=== PATIENT | male | born 1950 | race Caucasian/White ===

== ENCOUNTER 2020-08-06 09:54 | Day surgery (SDC) | payer MEDICARE, OTHER, SELFPAY ==
[2020-04-09 12:50] VITALS: BMI 25.6
[2020-08-06] VITALS (8 sets, daily range): BP systolic 94–132; BP diastolic 57–82; PULSE 54–74; RESP 16; TEMP 36.1–37; O2SAT 92–97; BMI 25.3
[2020-08-06] MEDS: Lactated Ringers 1,000 ML 100 ML IV (10:46)
--- NOTE | 2020-08-06 11:46 | HP.PCM_ITS ---
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 Patient denies any chronic abdominal pain/nausea/vomiting. Patient states he has bowel movements daily denies any blood. Denies any family history of colon cancer. Past Medical/Surgical History - Planned Operation Planned Operative Procedure/s: colonoscopy Date of Operative Procedure: 08/06/20 Permit Signed: No S.O.S: No Is This Patient Having a Total Joint: No - Previous Hospitalizations/Surgeries HX Hospitalizations: No HX of Surgeries: LUMBAR DISKECTOMY 2016. COLONOSCOPY Any Problems With Anesthesia: No You/Your Family Experience Fever (Hyperthermia) With Anes: No Cholinesterase deficiency: No - Cardiovascular Hx Chest Pain within Last 2 months: No Hx of Irregular Heartbeat and/or Afib: No Hx Heart Attack: No Hx Congestive Heart Failure: No Hx Rheumatic Fever: No Hx Hypertension: No Hx Internal Defibrillator: No Hx Pacemaker: No Hx Cardiac Catheterization: No Hx Cardiac Surgery/Stents/Etc.: No Hx Stress Test: No HX Edema: No Hx Pain in Legs when Walking/Leg Cramps: No - Respiratory Chronic Cough: No HX of Shortness of Breath: No Hoarseness: No Hx Chronic Obstructive Pulmonary Disease (COPD): No Hx Asthma: No Hx Emphysema: No Hx Sleep Apnea: No Hx Respiratory Tract Infection/Cold (presently): No Do You Snore Loudly (louder than talking or can be heard): No Do You Often Feel Tired/ Fatigued/ Sleepy Dring Daytime?: No Has Anyone Observed You Stop Breathing During Sleep?: No Result (for STOP score): Negative Hx Smoking: No Smoking Status: Never smoker - Gastrointestinal Hx Gastroesophageal Reflux: No Hx Gastrointestinal Disorders: No Hx Gastrointestinal Bleed: No Hx Ulcer: No Hx Hiatal Hernia: No Difficulty Chewing/Swallowing: No Special diet followed at home: Yes - DIABETIC Hx Unplanned Weight Loss of 20#: No HX Unplanned Weight Gain of 20#: No - Neurological Hx Seizures: No HX Syncope/Blackout Spells/Unconsciousness: No Hx CVA/Stroke: No Hx Transient Ischemic Attacks (TIA): No Hx Multiple Sclerosis: No Hx Parkinson's Disease: No Hx Head/Neck Injury: No Hx Headaches: No Hx Back Injury/Pain: Yes - LUMBAR DISKECTOMY FROM INJURY Recent Onset of Speech Difficulty: No Restless Legs: No Does patient have nerve stimulator: No - Blood Disorder Hx Leukemia: No Bleeding Tendencies: No Hx Deep Vein Thrombosis: No Hx High Cholesterol: Yes - on med Blood Transmitted Disease: No Hx Hepatitis: No Hx Cirrhosis: No Hx Anemia: No Hx Blood Disorders: No - Genitourinary Hx Renal Disease: No - Musculoskeletal Hx Arthritis: Yes - in neck Hx Rheumatoid Arthritis: No Hx Gout: No Recent Onset of an Orthopedic Problem: No - Endocrine Hx Diabetes: Yes - on metformin Insulin: No Thyroid Disease: No Hx Steroid Therapy: No - Psycho/Social Hx Substance Use: No Hx Alcohol Use: No Hx Anxiety: No Hx Depression: No Mental Illness: No Hx Dementia: No - Miscellaneous Hx Cancer: No Recent Exposure to Contagious Disease: No Active MRSA: No Hx of C-Diff: No Any Loose Teeth: No Allergies No Known Allergies Allergy (Verified 04/09/20 12:50) - Discharge Is Pt Admitted From a [facility], or a Senior Care: Yes Who Could Help: radha After D/C, Where Do you Plan to Go: Return Home - From the PAT History Number of Risk Factors: 2 - Physical Exam Vitals/I&O's: Vital Signs Temp Pulse Resp BP Pulse Ox 98.6 F 74 16 132/81 H 96 08/06/20 10:34 08/06/20 10:34 08/06/20 10:34 08/06/20 10:34 08/06/20 10:34 Oxygen Delivery Method Room Air Weight: 181 lb 10.574 oz Body Mass Index (BMI) 25.3 General: Alert, Oriented x3, Cooperative, No apparent distress HEENT: Atraumatic Lungs: Normal air movement Cardiovascular: Regular rate Abdomen: Soft, Non Tender, Non-Distended Extremities: No clubbing, No cyanosis, No edema Neurological: Cranial nerves II-XII grossly intact Psych/Mental Status: Normal Affect Microbiology Past 72 Hours 08/04/20 12:05 Interface Orders SARS-CoV-2 Antigen (Rapid) - Final Current Medications Lactated Ringer's () 1,000 mls @ 100 mls/hr IV .Q10H ABNER Last Admin: 08/06/20 10:46 Dose: 100 mls/hr Documented by: Assessment/Plan 70-year-old male for surveillance colonoscopy due to history of tubular villous adenoma rectal polyp Procedure Criteria Procedure Type: Elective COVID Risk Discussion: The surgeon/proceduralist and patient have discussed in detail the risk of expo sure to and/or potential harm posed by the COVID-19 virus with having a surgery/procedure at this time versus the risk of delaying the surgery/procedure. It is not possible to know either the risk of delaying the surgery or procedure or chance of getting an infection with perfect accuracy, but a joint decision was made between the patient and the surgeon/proceduralist to proceed at this time with the scheduled surgery/procedure as indicated on the consent form. Surgery Risks - Colonoscopy I discussed with the patient the risks of the procedure: Yes Risks Include but are not Limited To: Risks include but are not limited to: Bleeding, perforation requiring further surgery, inability to complete colonoscopy requiring barium enema.
--- NOTE | 2020-08-06 12:38 | OP.CCLET_ITS ---
08/06/2020 Karissa Grant [address] [phone] Re : Colonoscopy procedure for Randolph Bonilla Dear Dr. Grant This procedure was performed on Thursday, August 06, 2020. My impressions and recommendations are as follows: Impressions : - The entire examined colon is normal on direct and retroflexion views. - No specimens collected. Recommendations : - Discharge patient to home. - Resume previous diet. - Continue present medications. - Repeat colonoscopy in 5 years for surveillance. My findings are described in the full procedure note, which is enclosed. If I can be of further assistance, please feel free to contact me at Doctor phone number(s): , Work: . Sincerely, MD Glenna Rincon MD 08/06/2020 12:38:02 PM This report has been signed electronically.
--- NOTE | 2020-08-06 12:38 | OP.COLON_ITS ---
Patient Name: Randolph Bonilla Procedure Date: 08/06/2020 11:55 AM Date of : 1950 Age: 70 Procedure: Colonoscopy Indications: High risk colon cancer surveillance: Personal history of adenoma with villous component Providers: Glenna Rodriguez MD Referring MD: Karissa Grant Medicines: Monitored Anesthesia Care Patient Profile: This is a 70 year old male. Last Colonoscopy: July 2017. Complications: No immediate complications. Procedure: Pre-Anesthesia Assessment: - Prior to the procedure, a History and Physical was performed, and patient medications and allergies were reviewed. The patient's tolerance of previous anesthesia was also reviewed. The risks and benefits of the procedure and the sedation options and risks were discussed with the patient. All questions were answered, and informed consent was obtained. Prior Anticoagulants: The patient has taken no previous anticoagulant or antiplatelet agents. ASA Grade Assessment: Per anesthesia. After reviewing the risks and benefits, the patient was deemed in satisfactory condition to undergo the procedure. After I obtained informed consent, the scope was passed under direct vision. Throughout the procedure, the patient's blood pressure, pulse, and oxygen saturations were monitored continuously. The pediatric colonoscope was introduced through the anus and advanced to the cecum, identified by the appendiceal orifice, ileocecal valve and palpation. The colonoscopy was performed without difficulty. The patient tolerated the procedure well. The quality of the bowel preparation was good. Scope In: 12:04:58 PM Scope Withdrawal Time 0 hours 11 minutes 48 seconds Scope Out: 12:28:54 PM Total Procedure Duration Time 0 hours 23 minutes 56 seconds Findings: The perianal and digital rectal examinations were normal. The entire examined colon appeared normal on direct and retroflexion views. Impression: - The entire examined colon is normal on direct and retroflexion views. - No specimens collected. Recommendation: - Discharge patient to home. - Resume previous diet. - Continue present medications. - Repeat colonoscopy in 5 years for surveillance. Procedure Code(s): --- Professional --- G0105, Colorectal cancer screening; colonoscopy on individual at high risk Diagnosis Code(s): --- Professional --- Z86.010, Personal history of colonic polyps CPT copyright 2017 [employer]. All rights reserved. The codes documented in this report are preliminary and upon executive director sheltered workshop review may be revised to meet current compliance requirements. MD Glenna Rincon MD 08/06/2020 12:38:02 PM This report has been signed electronically. Number of Addenda: 0 Note Initiated On: 08/06/2020 11:55 AM
== END 2020-08-06 13:20 | disposition home or self-care (01) ==
LOC: EN 09:55 → AC 09:56
PROVIDERS: PCP Internal Medicine Infectious Disease; Referring Provider Internal Medicine Infectious Disease; Visit Provider Surgery
PROC: 0DJD8ZZ Inspection of Lower Intestinal Tract, Via Natural or Artificial Opening Endoscopic (ICD-10-PCS; CPT 45378; principal; 2020-08-06 11:10)
DX: Z12.11 Encounter for screening for malignant neoplasm of colon (principal); Z86.010 Personal history of colon polyps; E78.00 Pure hypercholesterolemia, unspecified; E11.9 Type 2 diabetes mellitus without complications; Z79.899 Other long term (current) drug therapy; Z79.84 Long term (current) use of oral hypoglycemic drugs; Z20.828 Contact with and (suspected) exposure to other viral communicable diseases
CPT/HCPCS: G0105; 87426; C9803; J7120

== ENCOUNTER → 2021-04-30 14:57 | Outpatient (CLI) | payer MEDICARE, OTHER, SELFPAY ==
[2020-08-06 10:34] VITALS: BMI 25.3
== END ==
PROVIDERS: PCP Internal Medicine Infectious Disease; Referring Provider Nurse Practitioner Adult Health; Visit Provider Nurse Practitioner Adult Health
DX: Z12.5 Encounter for screening for malignant neoplasm of prostate (principal)
CPT/HCPCS: 36415; 84153; G0103

== ENCOUNTER → 2023-06-07 | Outpatient (CLI) | payer MEDICARE, OTHER, SELFPAY | END | disposition home or self-care (01) | LOC: LAB 11:18 | PROVIDERS: PCP Internal Medicine Infectious Disease; Referring Provider Radiology Radiation Oncology; Visit Provider Radiology Radiation Oncology | DX: Z12.5 Encounter for screening for malignant neoplasm of prostate (principal) | CPT/HCPCS: 36415; 84153; G0103 ==

== ENCOUNTER → 2024-06-14 | Outpatient (CLI) | payer MEDICARE, OTHER, SELFPAY ==
[2024-06-14 12:48] LABS: PSA,Total - Annual Screen 1.12 ng/mL (0.00-4.00)
== END | disposition home or self-care (01) ==
LOC: LAB 10:20
PROVIDERS: PCP Internal Medicine Infectious Disease; Referring Provider Nurse Practitioner; Visit Provider Nurse Practitioner
DX: Z12.5 Encounter for screening for malignant neoplasm of prostate (principal)
CPT/HCPCS: 36415; 84153; G0103

== ENCOUNTER 2025-02-27 07:32 | Day surgery (SDC) | payer MEDICARE, OTHER, SELFPAY ==
[2025-02-27] VITALS (8 sets, daily range): BP systolic 101–148; BP diastolic 63–81; PULSE 50–58; RESP 14–18; TEMP 36.1–36.4; O2SAT 90–98; BMI 24.5
--- OUTSIDE RECORDS SUMMARY | 2025-02-27 07:43 | XMS RPT_ITS | CCD ---
Author Organization [facility] Care Team Providers Care Testing Analyst Name Role Phone Glenna Rodriguez MD Unavailable [phone] Afua Davis PA-C Unavailable [phone] DOLORES GRANT MD Admitting Unavailable DOLORES GRANT MD Attending Unavailable DOLORES GRANT MD Primary Care Unavailable DOLORES GRANT MD Consulting Unavailable PROVIDER, UNKNOWN Consulting Unavailable PROVIDER, UNKNOWN Consulting Unavailable PROVIDER, UNKNOWN Consulting Unavailable DOLORES GRANT MD Admitting Unavailable DOLORES GRANT MD Attending Unavailable DOLORES GRANT MD Primary Care Unavailable DOLORES GRANT MD Consulting Unavailable PROVIDER, UNKNOWN Consulting Unavailable PROVIDER, UNKNOWN Consulting Unavailable PROVIDER, UNKNOWN Consulting Unavailable DOLORES GRANT MD Admitting Unavailable DOLORES GRANT MD Attending Unavailable DOLORES GRANT MD Primary Care Unavailable DOLORES GRANT MD Consulting Unavailable PROVIDER, UNKNOWN Consulting Unavailable PROVIDER, UNKNOWN Consulting Unavailable PROVIDER, UNKNOWN Consulting Unavailable DOLORES GRANT MD Admitting Unavailable DOLORES GRANT MD Attending Unavailable DOLORES GRANT MD Primary Care Unavailable DOLORES GRANT MD Consulting Unavailable PROVIDER, UNKNOWN Consulting Unavailable PROVIDER, UNKNOWN Consulting Unavailable PROVIDER, UNKNOWN Consulting Unavailable [place] Attending Unavailable Dolores Grant Primary Care Unavailable [place] Referring Unavailable Dolores Grant Referring Unavailable Dolores Grant Primary Care Unavailable Glenna Rodriguez Attending Unavailable Medications Current Medications Medication Drug Class(es) Dates Sig (Normalized) Sig (Original) aspirin 81 mg delayed release oral tablet (1 source) Platelet Aggregation Inhibitor, Nonsteroidal Anti-inflammatory Drug Start: 04-09-2020 take 81 mg by mouth once daily Aspirin Active 81 MG PO DAILY April 09, 2020 12:00am lovastatin 40 mg oral tablet (1 source) HMG-CoA Reductase Inhibitor Start: 04-09-2020 take 40 mg by mouth once daily Lovastatin Active 40 MG PO DAILY April 09, 2020 12:00am metFORMIN hydrochloride 1000 mg oral tablet (1 source) Biguanide Start: 07-29-2017 take 500 mg by mouth once daily Metformin Active 500 MG PO DAILY July 29, 2017 1:00am Completed/Discontinued Medications Medication Drug Class(es) Dates Sig (Normalized) Sig (Original) Drug Treatment Unknown - unknown (3 sources) No information available. Problems Active Problems Problem Classification Problem Date Documented Da te Episodic/Chronic Diabetes mellitus without complication (3 sources) Type 2 diabetes mellitus without complications; Translations: [Type 2 diabetes mellitus without complications] Onset: 11-26-2024 Chronic Unclassified (2 sources) Screening for malignant neoplasm of colon ; Translations: [Encounter for screening for malignant neoplasm of colon] Onset: 07-06-2017 07-06-2017 Past or Other Problems Problem Classification Problem Date Documented Da te Episodic/Chronic Other screening for suspected conditions (not mental disorders or infectious disease) (1 source) Encounter for screening for malignant neoplasm of prostate; Translations: [Encounter for screening for malignant neoplasm of prostate] Onset: 07-12-2024 Episodic Results Test Name Value Interpretation Reference Range Facility [facility] with eGFRon 02-15-2025 AGE 74 years Normal [facility] Comment on above: Performed By: #### 2 02583 #### [facility],[address] [place] [address] Albumin [Mass/Vol] 3.9 g/dL Normal 3.4 - 5.0 [facility] Comment on above: Performed By: #### 2 68972 #### [facility],[address] [place], [place] [id number] Albumin/Globulin [Mass ratio] 1.1 {ratio} Normal 0.9 - 1.6 [facility] Comment on above: Performed By: #### 2 02265 #### [facility],[address] [place] [address] ALK PHOS 137 U/L High 46 - 116 [facility] Comment on above: Performed By: #### 2 11655 #### [facility],[address] [place] [address] ALT [Catalytic activity/Vol] 37 U/L Normal 16 - 63 [facility] Comment on above: Performed By: #### 2 42685 #### [facility],[address] [place], [place] [id number] Anion gap [Moles/Vol] 11 mmol/L Normal 10 - 20 [facility] Comment on above: Performed By: #### 2 42208 #### [facility],[address] [place] [address] AST [Catalytic activity/Vol] 27 U/L Normal 15 - 37 [facility] Comment on above: Performed By: #### 2 23922 #### [facility],[address] [place] [address] B/C RATIO 10 ratio Normal 0 - 30 [facility] Comment on above: Performed By: #### 2 70922 #### [facility],[address] [place] [address] Bilirubin [Mass/Vol] 0.8 mg/dL Normal 0.2 - 1.0 [facility] Comment on above: Performed By: #### 2 93301 #### [facility],[address] [place] [address] Calcium [Mass/Vol] 9.2 mg/dL Normal 8.5 - 10.1 [facility] Comment on above: Performed By: #### 2 99914 #### [facility],[address] [place], [place] [id number] Chloride [Moles/Vol] 104 mmol/L Normal 98 - 107 [facility] Comment on above: Performed By: #### 2 34181 #### [facility],[address] [place] [address] CMP with eGFR Normal [facility] Comment on above: Result Comment: COMP REHENSIVE METABOLIC PANEL Performed By: #### 2 32522 #### [facility],[address] [place] [address] CO2 [Moles/Vol] 29.4 mmol/L Normal 21.0 - 32.0 [facility] Comment on above: Performed By: #### 2 53599 #### [facility],[address] [place], [place] [id number] Creatinine [Mass/Vol] 1.15 mg/dL Normal 0.70 - 1.30 [facility] Comment on above: Performed By: #### 2 90964 #### [facility],[address] [place], [place] [address] GFR/1.73 sq M.predicted among non-blacks MDRD (S/P/Bld) [Vol rate/Area] mL/min/{1.73_m2} Normal 60 - 999 [facility] Comment on above: Performed By: #### 2 86327 #### [facility],[address] [place] [address] Result Comment: ACCO RDING TO THE NATIONAL KIDNEY DISEASE EDUCATION PROGRAM(NKDE), A NORMAL eGFR IS A VALUE GREATER THAN OR EQUAL TO 60 ML/MIN/1.73 SQ METERS. CHRONIC KIDNEY DISEASE: <60mL/MIN/1.73 SQ METERS KIDNEY FAILURE: <15mL/MIN/1.73 SQ METERS THIS TEST SHOULD ONLY BE USED FOR PATIENTS 18 YEARS OF AGE AND OLDER. Globulin (S) [Mass/Vol] 3.6 g/dL Normal 1.5 - 3.8 [facility] Comment on above: Performed By: #### 2 77387 #### [facility],[address] [place], [place] [id number] Glucose [Mass/Vol] 164 mg/dL High 74 - 106 [facility] Comment on above: Performed By: #### 2 50246 #### [facility],[address] [place], [place] [id number] Potassium [Moles/Vol] 4.6 mmol/L Normal 3.5 - 5.1 [facility] Comment on above: Performed By: #### 2 24974 #### [facility],[address] [place], [place] [id number] Protein [Mass/Vol] 7.5 g/dL Normal 6.4 - 8.2 [facility] Comment on above: Performed By: #### 2 56263 #### [facility],[address] [place], [place] [id number] Sodium [Moles/Vol] 140 mmol/L Normal 136 - 145 [facility] Comment on above: Performed By: #### 2 95401 #### [facility],[address] [place] [address] Urea nitrogen [Mass/Vol] 12 mg/dL Normal 7 - 18 [facility] Comment on above: Performed By: #### 2 23584 #### [facility],[address] [place] [address] HEMOGLOBIN A1C (POM)on 02-15 Glucose [Mass/Vol] 191.5 mg/dL High 0.0 - 0.0 [facility] Comment on above: Result Comment: BLDo HEMOGLOBIN A1C REFERENCE RANGESBLDo Suggested Diagnosis HbA1c(%) HbA1C (mmol/mol Diabetic >/=6.5 >/=48 Prediabetes 5.7 - 6.4 39 - 47 Normal <5.7 <39 Performed By: #### 2 39391 #### [facility],[address] [place], [place] [id number] HbA1c (Bld) [Mass fraction] 8.3 % High 0.0 - 6.5 [facility] Comment on above: Performed By: #### 2 76974 #### [facility],[address] [place] [address] CMP with eGFRon 11-26-2024 AGE 74 years Normal [facility] Comment on above: Performed By: #### 2 34246 #### [facility],[address] [place], [place] [id number] Albumin [Mass/Vol] 4.2 g/dL Normal 3.4 - 5.0 [facility] Comment on above: Performed By: #### 2 80089 #### [facility],[address] [place] [address]69 Albumin/Globulin [Mass ratio] 1.2 {ratio} Normal 0.9 - 1.6 [facility] Comment on above: Performed By: #### 2 47451 #### [facility],[address] [place] [address]663 ALK PHOS 129 U/L High 46 - 116 [facility] Comment on above: Performed By: #### 2 45073 #### [facility],[address] [place] [address] 59189 ALT [Catalytic activity/Vol] 30 U/L Normal 16 - 63 [facility] Comment on above: Performed By: #### 2 72028 #### [facility],[address] [place] [address]458 Anion gap [Moles/Vol] 12 mmol/L Normal 10 - 20 [facility] Comment on above: Performed By: #### 2 96005 #### [facility],[address] [place] [address] 67191 AST [Catalytic activity/Vol] 20 U/L Normal 15 - 37 [facility] Comment on above: Performed By: #### 2 53367 #### [facility],[address] [place] [address] 28261 B/C RATIO 11 ratio Normal 0 - 30 [facility] Comment on above: Performed By: #### 2 26344 #### [facility],[address] [place] [address]6869 Bilirubin [Mass/Vol] 0.8 mg/dL Normal 0.2 - 1.0 [facility] Comment on above: Performed By: #### 2 62203 #### [facility],[address] [place] [address]26 Calcium [Mass/Vol] 9.9 mg/dL Normal 8.5 - 10.1 [facility] Comment on above: Performed By: #### 2 50988 #### [facility],[address] [place] [address] 29612 Chloride [Moles/Vol] 103 mmol/L Normal 98 - 107 [facility] Comment on above: Performed By: #### 2 67934 #### [facility],[address] [place] [address] 93200 CMP with eGFR Normal [facility] Comment on above: Result Comment: COMP REHENSIVE METABOLIC PANEL Performed By: #### 2 97107 #### [facility],[address] [place] [address]805 CO2 [Moles/Vol] 29.6 mmol/L Normal 21.0 - 32.0 [facility] Comment on above: Performed By: #### 2 15920 #### [facility],[address] [place] [address]18 Creatinine [Mass/Vol] 1.01 mg/dL Normal 0.70 - 1.30 [facility] Comment on above: Performed By: #### 2 25497 #### [facility],[address] [place] [address] GFR/1.73 sq M.predicted among non-blacks MDRD (S/P/Bld) [Vol rate/Area] mL/min/{1.73_m2} Normal 60 - 999 [facility] Comment on above: Performed By: #### 2 49086 #### [facility],[address] [place] [address] Result Comment: ACCO RDING TO THE NATIONAL KIDNEY DISEASE EDUCATION PROGRAM(NKDE), A NORMAL eGFR IS A VALUE GREATER THAN OR EQUAL TO 60 ML/MIN/1.73 SQ METERS. CHRONIC KIDNEY DISEASE: <60mL/MIN/1.73 SQ METERS KIDNEY FAILURE: <15mL/MIN/1.73 SQ METERS THIS TEST SHOULD ONLY BE USED FOR PATIENTS 18 YEARS OF AGE AND OLDER. Globulin (S) [Mass/Vol] 3.5 g/dL Normal 1.5 - 3.8 [facility] Comment on above: Performed By: #### 2 43946 #### [facility],[address] [place] [address] 12728 Glucose [Mass/Vol] 149 mg/dL High 74 - 106 [facility] Comment on above: Performed By: #### 2 51731 #### [facility],[address] [place] [address] 82506 Potassium [Moles/Vol] 4.3 mmol/L Normal 3.5 - 5.1 [facility] Comment on above: Performed By: #### 2 92170 #### [facility],[address] [place] [address] 85885 Protein [Mass/Vol] 7.7 g/dL Normal 6.4 - 8.2 [facility] Comment on above: Performed By: #### 2 08005 #### [facility],[address] [place] [address] 12201 Sodium [Moles/Vol] 140 mmol/L Normal 136 - 145 [facility] Comment on above: Performed By: #### 2 15429 #### [facility],[address] [place] [address] 36035 Urea nitrogen [Mass/Vol] 11 mg/dL Normal 7 - 18 [facility] Comment on above: Performed By: #### 2 45673 #### [facility],[address] [place] [address] 81694 HEMOGLOBIN A1C (POM)on 11-26 Glucose [Mass/Vol] 191.5 mg/dL High 0.0 - 0.0 [facility] Comment on above: Result Comment: BLDo HEMOGLOBIN A1C REFERENCE RANGESBLDo Suggested Diagnosis HbA1c(%) HbA1C (mmol/mol Diabetic >/=6.5 >/=48 Prediabetes 5.7 - 6.4 39 - 47 Normal <5.7 <39 Performed By: #### 2 50984 #### [facility],[address] [place] [address] 24711 HbA1c (Bld) [Mass fraction] 8.3 % High 0.0 - 6.5 [facility] Comment on above: Performed By: #### 2 43495 #### [facility],[address] [place], [place] [address] CBC + DIFFon 08-28-2024 Baso # 0.02 x10EE3/UL Normal 0.00 - 0.10 [facility] Comment on above: Performed By: #### 2 93018 #### [facility],[address] [place], [place] [address] Basophils/100 WBC (Bld) 0.4 % Normal 0.0 - 2.0 [facility] Comment on above: Performed By: #### 2 41153 #### [facility],[address] [place] [address] CBC + DIFF Normal [facility] Comment on above: Result Comment: CBC- COMPLETE BLOOD COUNT Performed By: #### 2 25077 #### [facility],[address] [place] [address] EO # 0.08 x10EE3/UL Normal 0.00 - 0.50 [facility] Comment on above: Performed By: #### 2 17708 #### [facility],[address] [place] [address] 43452 Eosinophils/100 WBC (Bld) 1.8 % Normal 0.0 - 7.0 [facility] Comment on above: Performed By: #### 2 05047 #### [facility],[address] [place], [place] [address] Erythrocyte distribution width (RBC) [Ratio] 13.8 % Normal 12.0 - 15.6 [facility] Comment on above: Performed By: #### 2 89076 #### [facility],[address] [place], [place] [address] Hematocrit (Bld) [Volume fraction] 45.8 % Normal 40.0 - 52.0 [facility] Comment on above: Performed By: #### 2 29967 #### [facility],[address] [place] [address] 02317 Hemoglobin (Bld) [Mass/Vol] 15.6 g/dL Normal 13.0 - 17.5 [facility] Comment on above: Performed By: #### 2 02839 #### [facility],[address] [place], [place] [address] Lymph # 0.88 x10EE3/UL Normal 0.80 - 2.80 [facility] Comment on above: Performed By: #### 2 74870 #### [facility],[address] [place], [place] [address] Lymphocytes/100 WBC (Bld) 20.1 % Normal 20.0 - 45.0 [facility] Comment on above: Performed By: #### 2 28047 #### [facility],[address] [place], [place] [address] MANUAL DIFF N/A Normal [facility] Comment on above: Performed By: #### 2 32253 #### [facility],[address] [place] [address] 84148 MCH (RBC) [Entitic mass] 29 pg Normal 27 - 33 [facility] Comment on above: Performed By: #### 2 69157 #### [facility],[address] [place] [address] 44759 MCHC 34 X10 3 Normal 32 - 36 [facility] Comment on above: Performed By: #### 2 87036 #### [facility],[address] [place] [address] 28973 MCV (RBC) [Entitic vol] 86 fL Normal 81 - 98 [facility] Comment on above: Performed By: #### 2 48712 #### [facility],[address] [place] [address] 67753 [place] # 0.34 x10EE3/UL Normal 0.20 - 1.00 [facility] Comment on above: Performed By: #### 2 91088 #### [facility],[address] [place] [address] 68068 MONOS % 7.8 % Normal 0.0 - 10.0 [facility] Comment on above: Performed By: #### 2 53889 #### [facility],[address] [place] [address] 30789 Morphology Reg (Bld) [Interp] N/A Normal [facility] Comment on above: Performed By: #### 2 82382 #### [facility],[address] [place] [address] 96248 Neut # 3.06 x10EE3/UL Normal 1.50 - 7.10 [facility] Comment on above: Performed By: #### 2 42589 #### [facility],[address] [place] [address] 76293 Neutrophils/100 WBC (Bld) 69.9 % Normal 46.0 - 76.0 [facility] Comment on above: Performed By: #### 2 04719 #### [facility],[address] [place] [address] 93188 PLATELET 240 x10EE3/UL Normal 150 - 450 [facility] Comment on above: Performed By: #### 2 57137 #### [facility],[address] [place] [address] 36602 Platelet mean volume (Bld) [Entitic vol] 8.3 fL Normal 6.4 - 10.5 [facility] Comment on above: Result Comment: AUTO MATED DIFFERENTIAL Performed By: #### 2 45222 #### [facility],[address] [place] [address] 37309 RBC 5.34 x 10EE6/UL Normal 4.50 - 6.00 [facility] Comment on above: Performed By: #### 2 74712 #### [facility],[address] [place] [address] 80963 WBC 4.4 x 10EE3/UL Low 4.5 - 10.8 [facility] Comment on above: Performed By: #### 2 24843 #### [facility],[address] [place] [address] 37921 CMP with eGFRon 08-28-2024 AGE 74 years Normal [facility] Comment on above: Performed By: #### 2 98100 #### [facility],[address] [place] [address] 79147 Albumin [Mass/Vol] 3.9 g/dL Normal 3.4 - 5.0 [facility] Comment on above: Performed By: #### 2 68714 #### [facility],[address] [place] [address] 46186 Albumin/Globulin [Mass ratio] 1.2 {ratio} Normal 0.9 - 1.6 [facility] Comment on above: Performed By: #### 2 28281 #### [facility],[address] [place] [address] 41810 ALK PHOS 118 U/L High 46 - 116 [facility] Comment on above: Performed By: #### 2 96686 #### [facility],[address] [place] [address] 83860 ALT [Catalytic activity/Vol] 35 U/L Normal 16 - 63 [facility] Comment on above: Performed By: #### 2 37556 #### [facility],[address] [place] [address] 54721 Anion gap [Moles/Vol] 10 mmol/L Normal 10 - 20 [facility] Comment on above: Performed By: #### 2 45094 #### [facility],[address] [place] [address] 75246 AST [Catalytic activity/Vol] 26 U/L Normal 15 - 37 [facility] Comment on above: Performed By: #### 2 69728 #### [facility],[address] [place] [address] 24550 B/C RATIO 9 ratio Normal 0 - 30 [facility] Comment on above: Performed By: #### 2 32315 #### [facility],[address] [place] [address] 28539 Bilirubin [Mass/Vol] 0.9 mg/dL Normal 0.2 - 1.0 [facility] Comment on above: Performed By: #### 2 81331 #### [facility],[address] [place] [address] 52022 Calcium [Mass/Vol] 9.2 mg/dL Normal 8.5 - 10.1 [facility] Comment on above: Performed By: #### 2 04838 #### [facility],[address] [place] [address] 07229 Chloride [Moles/Vol] 104 mmol/L Normal 98 - 107 [facility] Comment on above: Performed By: #### 2 77769 #### [facility],[address] [place] [address] 61001 CMP with eGFR Normal [facility] Comment on above: Result Comment: COMP REHENSIVE METABOLIC PANEL Performed By: #### 2 21307 #### [facility],[address] [place] [address] 67626 CO2 [Moles/Vol] 31.5 mmol/L Normal 21.0 - 32.0 [facility] Comment on above: Performed By: #### 2 93140 #### [facility],[address] [place] [address] 84643 Creatinine [Mass/Vol] 1.15 mg/dL Normal 0.70 - 1.30 [facility] Comment on above: Performed By: #### 2 48119 #### [facility],[address] [place] [address] 10606 GFR/1.73 sq M.predicted among non-blacks MDRD (S/P/Bld) [Vol rate/Area] mL/min/{1.73_m2} Normal 60 - 999 [facility] Comment on above: Performed By: #### 2 50044 #### [facility],[address] [place] [address] 06559 Result Comment: ACCO RDING TO THE NATIONAL KIDNEY DISEASE EDUCATION PROGRAM(NKDE), A NORMAL eGFR IS A VALUE GREATER THAN OR EQUAL TO 60 ML/MIN/1.73 SQ METERS. CHRONIC KIDNEY DISEASE: <60mL/MIN/1.73 SQ METERS KIDNEY FAILURE: <15mL/MIN/1.73 SQ METERS THIS TEST SHOULD ONLY BE USED FOR PATIENTS 18 YEARS OF AGE AND OLDER. Globulin (S) [Mass/Vol] 3.3 g/dL Normal 1.5 - 3.8 [facility] Comment on above: Performed By: #### 2 32993 #### [facility],[address] [place] [address] Glucose [Mass/Vol] 131 mg/dL High 74 - 106 [facility] Comment on above: Performed By: #### 2 76753 #### [facility],[address] [place] [address] Potassium [Moles/Vol] 3.9 mmol/L Normal 3.5 - 5.1 [facility] Comment on above: Performed By: #### 2 71084 #### [facility],[address] [place] [address] Protein [Mass/Vol] 7.2 g/dL Normal 6.4 - 8.2 [facility] Comment on above: Performed By: #### 2 92386 #### [facility],[address] [place] [address] Sodium [Moles/Vol] 142 mmol/L Normal 136 - 145 [facility] Comment on above: Performed By: #### 2 00350 #### [facility],[address] [place], [place] [id number] Urea nitrogen [Mass/Vol] 10 mg/dL Normal 7 - 18 [facility] Comment on above: Performed By: #### 2 12291 #### [facility],[address] [place] [address] 76956 HEMOGLOBIN A1C (POM)on 08-28 Glucose [Mass/Vol] 185.8 mg/dL High 0.0 - 0.0 [facility] Comment on above: Result Comment: BLDo HEMOGLOBIN A1C REFERENCE RANGESBLDo Suggested Diagnosis HbA1c(%) HbA1C (mmol/mol Diabetic >/=6.5 >/=48 Prediabetes 5.7 - 6.4 39 - 47 Normal <5.7 <39 Performed By: #### 2 69510 #### [facility],[address] [place], [place] [id number] HbA1c (Bld) [Mass fraction] 8.1 % High 0.0 - 6.5 [facility] Comment on above: Performed By: #### 2 92293 #### [facility],[address] [place], [place] [id number] LIPID PROFILEon 08-28-2024 Cholesterol [Mass/Vol] 168 mg/dL Normal 0 - 240 [facility] Comment on above: Performed By: #### 2 01737 #### [facility],[address] [place] [address] Cholesterol in HDL [Mass/Vol] 48 mg/dL Normal 40 - 60 [facility] Comment on above: Performed By: #### 2 55537 #### [facility],[address] [place] [address] 20314 Cholesterol in LDL [Mass/Vol] 105 mg/dL Normal 0 - 129 [facility] Comment on above: Performed By: #### 2 05762 #### [facility],[address] [place] [address] 07764 Cholesterol.total/Chol esterol in HDL [Mass ratio] 3.5 {ratio} Normal 0.0 - 5.0 [facility] Comment on above: Performed By: #### 2 87307 #### [facility],[address] [place] [address] 44006 Lipid 1996 panel Normal [facility] Comment on above: Result Comment: LIPI D PROFILE Performed By: #### 2 15681 #### [facility],[address] [place], [place] [id number] Triglyceride [Mass/Vol] 77 mg/dL Normal 0 - 150 [facility] Comment on above: Performed By: #### 2 58480 #### [facility],[address] [place] [address] 85672 URINALYSISon 08-28-2024 Bilirubin Ql (U) Negative Normal NORMAL: NEGATIVE [facility] Comment on above: Performed By: #### 2 12030 #### [facility],[address] [place] [address] 47698 Clarity (U) clear Normal NORMAL: CLEAR [facility] Comment on above: Performed By: #### 2 61608 #### [facility],[address] [place] [address] Color (U) yellow Normal NORMAL: YELLOW [facility] Comment on above: Performed By: #### 2 76312 #### [facility],[address] [place] [address] 28255 Glucose Ql (U) NORM Normal NORMAL: NORMAL [facility] Comment on above: Performed By: #### 2 77526 #### [facility],[address] [place] [address] 63775 Hemoglobin Ql (U) Negative Normal NORMAL: NEGATIVE [facility] Comment on above: Performed By: #### 2 01226 #### [facility],[address] [place] [address] 75942 Ketone Negative Normal NORMAL: NEGATIVE [facility] Comment on above: Performed By: #### 2 93449 #### [facility],[address] [place] [address] 41102 Leukocytes Negative Normal NORMAL: NEGATIVE [facility] Comment on above: Performed By: #### 2 72965 #### [facility],[address] [place] [address] 32421 Nitrite Ql (U) Negative Normal NORMAL: NEGATIVE [facility] Comment on above: Performed By: #### 2 71427 #### [facility],[address] [place] [address] 80363 pH (U) 6.5 [pH] Normal NORMAL: 5.0-8.0 [facility] Comment on above: Performed By: #### 2 77375 #### [facility],[address] [place] [address] Protein Ql (U) Negative Normal NORMAL: NEGATIVE [facility] Comment on above: Performed By: #### 2 82193 #### [facility],[address] [place] [address] Sp Avon 1.015 Normal NORMAL: 1.010-1.030 [facility] Comment on above: Performed By: #### 2 41590 #### [facility],[address] [place] [address] Specimen Type R Normal [facility] Comment on above: Performed By: #### 2 65512 #### [facility],[address] [place] [address] Urinalysis dipstick W Reflex Microscopic panel (U) NOT INDICATED Normal [facility] Comment on above: Performed By: #### 2 18591 #### [facility],[address] [place] [address] Urobilinog NORM Normal NORMAL: NORMAL [facility] Comment on above: Performed By: #### 2 16699 #### [facility],[address] [place], [place] [address] PSA,Total - Annual Screenon 06-14-2024 PSA,TOT SCREEN 1.12 ng/mL Normal 0.00-4.00 [facility] Comment on above: Result Comment: This test was performed using the TPSA assay method for the [employer] chemistry system. Values obtained with different assay methods cannot be used interchangably. When changing PSA assays in the course of monitoring a patient, additional sequential testing should be carried out to confirm baseline values. Performed By: #### L 501.9910 #### [facility] [address] [place], [place], [id number] CBC + DIFFon 02-24-2024 Baso # 0.02 x10EE3/UL Normal 0.00 - 0.10 [facility] Comment on above: Performed By: #### 2 40691 #### [facility],[address] [place] [address] 52792 Basophils/100 WBC (Bld) 0.4 % Normal 0.0 - 2.0 [facility] Comment on above: Performed By: #### 2 47612 #### [facility],[address] [place] [address] CBC + DIFF Normal [facility] Comment on above: Result Comment: CBC- COMPLETE BLOOD COUNT Performed By: #### 2 67218 #### [facility],[address] [place] [address] EO # 0.15 x10EE3/UL Normal 0.00 - 0.50 [facility] Comment on above: Performed By: #### 2 61936 #### [facility],[address] [place], [place] [address] Eosinophils/100 WBC (Bld) 3.1 % Normal 0.0 - 7.0 [facility] Comment on above: Performed By: #### 2 95869 #### [facility],[address] [place] [address] Erythrocyte distribution width (RBC) [Ratio] 13.9 % Normal 12.0 - 15.6 [facility] Comment on above: Performed By: #### 2 96010 #### [facility],[address] [place] [address] Hematocrit (Bld) [Volume fraction] 46.9 % Normal 40.0 - 52.0 [facility] Comment on above: Performed By: #### 2 78610 #### [facility],[address] [place] [address] 60885 Hemoglobin (Bld) [Mass/Vol] 16.1 g/dL Normal 13.0 - 17.5 [facility] Comment on above: Performed By: #### 2 80081 #### [facility],[address] [place] [address] 16482 Lymph # 0.81 x10EE3/UL Normal 0.80 - 2.80 [facility] Comment on above: Performed By: #### 2 02856 #### [facility],[address] [place], [place] [address] Lymphocytes/100 WBC (Bld) 17.1 % Low 20.0 - 45.0 [facility] Comment on above: Performed By: #### 2 07594 #### [facility],[address] [place] [address] 50435 MANUAL DIFF N/A Normal [facility] Comment on above: Performed By: #### 2 86532 #### [facility],[address] [place] [address] MCH (RBC) [Entitic mass] 30 pg Normal 27 - 33 [facility] Comment on above: Performed By: #### 2 36427 #### [facility],[address] [place] [address] MCHC 34 X10 3 Normal 32 - 36 [facility] Comment on above: Performed By: #### 2 22487 #### [facility],[address] [place] [address] 44537 MCV (RBC) [Entitic vol] 86 fL Normal 81 - 98 [facility] Comment on above: Performed By: #### 2 67833 #### [facility],[address] [place] [address] 16379 [place] # 0.37 x10EE3/UL Normal 0.20 - 1.00 [facility] Comment on above: Performed By: #### 2 02704 #### [facility],[address] [place] [address] 56314 MONOS % 7.7 % Normal 0.0 - 10.0 [facility] Comment on above: Performed By: #### 2 13744 #### [facility],[address] [place] [address] 98803 Morphology Reg (Bld) [Interp] N/A Normal [facility] Comment on above: Performed By: #### 2 69709 #### [facility],[address] [place] [address] 90435 Neut # 3.42 x10EE3/UL Normal 1.50 - 7.10 [facility] Comment on above: Performed By: #### 2 64944 #### [facility],[address] [place] [address] 74384 Neutrophils/100 WBC (Bld) 71.7 % Normal 46.0 - 76.0 [facility] Comment on above: Performed By: #### 2 89519 #### [facility],[address] [place] [address] 46041 PLATELET 200 x10EE3/UL Normal 150 - 450 [facility] Comment on above: Performed By: #### 2 18872 #### [facility],[address] [place] [address] 47500 Platelet mean volume (Bld) [Entitic vol] 8.7 fL Normal 6.4 - 10.5 [facility] Comment on above: Result Comment: AUTO MATED DIFFERENTIAL Performed By: #### 2 75849 #### [facility],[address] [place] [address] 95288 RBC 5.44 x 10EE6/UL Normal 4.50 - 6.00 [facility] Comment on above: Performed By: #### 2 54375 #### [facility],[address] [place] [address] 95412 WBC 4.8 x 10EE3/UL Normal 4.5 - 10.8 [facility] Comment on above: Performed By: #### 2 98785 #### [facility],[address] [place] [address] 21176 CMP with eGFRon 02-24-2024 AGE 73 years Normal [facility] Comment on above: Performed By: #### 2 28749 #### [facility],[address] [place] [address] 99593 Albumin [Mass/Vol] 3.8 g/dL Normal 3.4 - 5.0 [facility] Comment on above: Performed By: #### 2 25004 #### [facility],[address] [place] [address] 13176 Albumin/Globulin [Mass ratio] 1.1 {ratio} Normal 0.9 - 1.6 [facility] Comment on above: Performed By: #### 2 96535 #### [facility],[address] [place] [address] 43846 ALK PHOS 130 U/L High 46 - 116 [facility] Comment on above: Performed By: #### 2 56674 #### [facility],[address] [place] [address] 90982 ALT [Catalytic activity/Vol] 28 U/L Normal 16 - 63 [facility] Comment on above: Performed By: #### 2 75455 #### [facility],[address] [place] [address] 24121 Anion gap [Moles/Vol] 13 mmol/L Normal 10 - 20 [facility] Comment on above: Performed By: #### 2 37056 #### [facility],[address] [place] [address] 05833 AST [Catalytic activity/Vol] 21 U/L Normal 15 - 37 [facility] Comment on above: Performed By: #### 2 14103 #### [facility],[address] [place] [address] 90438 B/C RATIO 13 ratio Normal 0 - 30 [facility] Comment on above: Performed By: #### 2 84258 #### [facility],[address] [place] [address] 01381 Bilirubin [Mass/Vol] 0.8 mg/dL Normal 0.2 - 1.0 [facility] Comment on above: Performed By: #### 2 46850 #### [facility],[address] [place] [address] 28616 Calcium [Mass/Vol] 8.8 mg/dL Normal 8.5 - 10.1 [facility] Comment on above: Performed By: #### 2 31886 #### [facility],[address] [place] [address] 67638 Chloride [Moles/Vol] 102 mmol/L Normal 98 - 107 [facility] Comment on above: Performed By: #### 2 57759 #### [facility],[address] [place] [address] 24120 CMP with eGFR Normal [facility] Comment on above: Result Comment: COMP REHENSIVE METABOLIC PANEL Performed By: #### 2 76744 #### [facility],[address] [place] [address] 03756 CO2 [Moles/Vol] 26.8 mmol/L Normal 21.0 - 32.0 [facility] Comment on above: Performed By: #### 2 45346 #### [facility],[address] [place] [address] 34621 Creatinine [Mass/Vol] 1.05 mg/dL Normal 0.70 - 1.30 [facility] Comment on above: Performed By: #### 2 39516 #### [facility],[address] [place] [address] 19379 GFR/1.73 sq M.predicted among non-blacks MDRD (S/P/Bld) [Vol rate/Area] mL/min/{1.73_m2} Normal 60 - 999 [facility] Comment on above: Performed By: #### 2 39217 #### [facility],[address] [place] [address] 42405 Result Comment: ACCO RDING TO THE NATIONAL KIDNEY DISEASE EDUCATION PROGRAM(NKDE), A NORMAL eGFR IS A VALUE GREATER THAN OR EQUAL TO 60 ML/MIN/1.73 SQ METERS. CHRONIC KIDNEY DISEASE: <60mL/MIN/1.73 SQ METERS KIDNEY FAILURE: <15mL/MIN/1.73 SQ METERS THIS TEST SHOULD ONLY BE USED FOR PATIENTS 18 YEARS OF AGE AND OLDER. Globulin (S) [Mass/Vol] 3.5 g/dL Normal 1.5 - 3.8 [facility] Comment on above: Performed By: #### 2 44775 #### [facility],[address] [place] [address] 90372 Glucose [Mass/Vol] 151 mg/dL High 74 - 106 [facility] Comment on above: Performed By: #### 2 39214 #### [facility],[address] [place] [address] 48754 Potassium [Moles/Vol] 4.0 mmol/L Normal 3.5 - 5.1 [facility] Comment on above: Performed By: #### 2 55315 #### [facility],[address] [place] [address] 21479 Protein [Mass/Vol] 7.3 g/dL Normal 6.4 - 8.2 [facility] Comment on above: Performed By: #### 2 24106 #### [facility],[address] [place] [address] 89068 Sodium [Moles/Vol] 138 mmol/L Normal 136 - 145 [facility] Comment on above: Performed By: #### 2 15662 #### [facility],[address] [place] [address] 34339 Urea nitrogen [Mass/Vol] 14 mg/dL Normal 7 - 18 [facility] Comment on above: Performed By: #### 2 80240 #### [address] [address] HEMOGLOBIN A1C (POM)on 02-23 Glucose [Mass/Vol] 177.2 mg/dL High 0.0 - 0.0 [facility] Comment on above: Result Comment: BLDo HEMOGLOBIN A1C REFERENCE RANGESBLDo Suggested Diagnosis HbA1c(%) HbA1C (mmol/mol Diabetic >/=6.5 >/=48 Prediabetes 5.7 - 6.4 39 - 47 Normal <5.7 <39 Performed By: #### 2 46928 #### [facility],[address] [place] [address] 24639 HbA1c (Bld) [Mass fraction] 7.8 % High 0.0 - 6.5 [facility] Comment on above: Performed By: #### 2 70341 #### [facility],[address] [place] [address] 32593 LIPID PROFILEon 02-24-2024 Cholesterol [Mass/Vol] 180 mg/dL Normal 0 - 240 [facility] Comment on above: Performed By: #### 2 68027 #### [facility],[address] [place] [address] 44027 Cholesterol in HDL [Mass/Vol] 47 mg/dL Normal 40 - 60 [facility] Comment on above: Performed By: #### 2 03868 #### [facility],[address] [place] [address] 36251 Cholesterol in LDL [Mass/Vol] 117 mg/dL Normal 0 - 129 [facility] Comment on above: Performed By: #### 2 45752 #### [facility],[address] [place] [address] 22298 Cholesterol.total/Chol esterol in HDL [Mass ratio] 3.8 {ratio} Normal 0.0 - 5.0 [facility] Comment on above: Performed By: #### 2 46258 #### [facility],[address] [place] [address] 23594 Lipid 1996 panel Normal [facility] Comment on above: Result Comment: LIPI D PROFILE Performed By: #### 2 28710 #### [facility],[address] [place] [address] 95150 Triglyceride [Mass/Vol] 79 mg/dL Normal 0 - 150 [facility] Comment on above: Performed By: #### 2 75561 #### [facility],[address] [place] [address] 93786 URINALYSISon 02-24-2024 Bilirubin Ql (U) Negative Normal NORMAL: NEGATIVE [facility] Comment on above: Performed By: #### 2 30404 #### [facility],[address] [place] [address] 86857 Clarity (U) clear Normal NORMAL: CLEAR [facility] Comment on above: Performed By: #### 2 91951 #### [facility],[address] [place] [address] 59720 Color (U) yellow Normal NORMAL: YELLOW [facility] Comment on above: Performed By: #### 2 62984 #### [facility],[address] [place] [address] 33338 Glucose Ql (U) 50 Abnormal NORMAL: NORMAL [facility] Comment on above: Performed By: #### 2 60889 #### [facility],[address] [place] [address] 52390 Hemoglobin Ql (U) Negative Normal NORMAL: NEGATIVE [facility] Comment on above: Performed By: #### 2 98046 #### [facility],[address] [place] [address] 01450 Ketone Negative Normal NORMAL: NEGATIVE [facility] Comment on above: Performed By: #### 2 96252 #### [facility],[address] [place] [address] 41158 Leukocytes Negative Normal NORMAL: NEGATIVE [facility] Comment on above: Performed By: #### 2 63766 #### [facility],[address] [place] [address] 45129 Nitrite Ql (U) Negative Normal NORMAL: NEGATIVE [facility] Comment on above: Performed By: #### 2 34530 #### [facility],[address] [place] [address] 06387 pH (U) 6.5 [pH] Normal NORMAL: 5.0-8.0 [facility] Comment on above: Performed By: #### 2 38409 #### [facility],[address] [place] [address] Protein Ql (U) Negative Normal NORMAL: NEGATIVE [facility] Comment on above: Performed By: #### 2 30763 #### [facility],[address] [place] [address] Sp Avon 1.015 Normal NORMAL: 1.010-1.030 [facility] Comment on above: Performed By: #### 2 65147 #### [facility],[address] [place] [address] Specimen Type R Normal [facility] Comment on above: Performed By: #### 2 57579 #### [facility],[address] [place] [address] Urinalysis dipstick W Reflex Microscopic panel (U) NOT INDICATED Normal [facility] Comment on above: Performed By: #### 2 75493 #### [facility],[address] [place] [address] Urobilinog NORM Normal NORMAL: NORMAL [facility] Comment on above: Performed By: #### 2 33151 #### [facility],[address] [place] [address] URINE MICROALBUMIN W/CREATIN INE, RANDOMon 02-24-2024 CREATININE UR 61.34 mg/dl Normal [facility] Comment on above: Performed By: #### 2 32228 #### [facility],[address] [place], [place] [address] MICROALBUMIN UR 0.5 mg/dL Normal 0.1 - 25.1 [facility] Comment on above: Performed By: #### 2 18416 #### [facility],[address] [place] [address] UACR 8 mg/g Normal [facility] Comment on above: Performed By: #### 2 26246 #### [facility],[address] [place] [address] No Panel InformationOrdered By: Froy Hussein on 06-07-2023 Prostate Specific Antigen Screen 1.00 ng/mL 0.00-4.00 [facility] Comment on above: This test was perfor med using the TPSA assay method for [employer] chemistry system. Values obtained with differentassay methods cannot be used interchangably.When changing PSA assays in the course of monitoring apatient, additional sequential testing should be carriedout to confirm baseline values. Hemoglobin A1con 09-22-2021 Glucose [Mass/Vol] 169 mg/dL Normal [facility] Comment on above: Performed By: #### H ALEJANDRO1C #### [facility] [address] [phone] HbA1c (Bld) [Mass fraction] 7.5 % High 4.3-5.6 [facility] Comment on above: Performed By: #### H ALEJANDRO1C #### [facility] [address] [place] [phone] Hemoglobin A1con 05-25-2021 Glucose [Mass/Vol] 171 mg/dL Normal [facility] Comment on above: Performed By: #### H ALEJANDRO1C #### [facility] [address] [place] [phone] HbA1c (Bld) [Mass fraction] 7.6 % High 4.3-5.6 [facility] Comment on above: Performed By: #### H ALEJANDRO1C #### [facility] [address] [phone] Hemoglobin A1con 10-04-2020 Glucose [Mass/Vol] 154 mg/dL Normal [facility] Comment on above: Performed By: #### H ALEJANDRO1C #### [facility] [address] [phone] HbA1c (Bld) [Mass fraction] 7.0 % High 4.3-5.6 [facility] Comment on above: Performed By: #### H ALEJANDRO1C #### [facility] [address] [place] [address] Lab Report: Bedside Glucoseo n 08-01-2017 Glucose mass conc 99 mg/dL Invalid Interpretation Code [id number] [facility] Work Phone: Encounters Encounter Date Encounter Type Care Provider Facility Start: 02-27-2025 ambulatory Dolores Grant Facility:[facility] Start: 02-15-2025 End: 02-15-2025 ambulatory DOLORES GRANT [facility] Start: 11-26-2024 End: 11-26-2024 ambulatory DOLORES BUENO SIL[facility] Start: 08-28-2024 End: 08-28-2024 ambulatory DOLORES BUENO [facility] Start: 06-14-2024 End: 06-14-2024 ambulatory Asya [place] Facility:[facility] Start: 02-24-2024 End: 02-24-2024 ambulatory DOLORES BUENO [facility] Start: 06-07-2023 End: 06-07-2023 ambulatory [facility] Work Phone: Start: 06-07-2023 End: 06-07-2023 Patient encounter procedure [facility] Work Phone: Procedures Date Procedure Procedure Detail Performing Clinician Start: 08-28-2024 Urinalysis YASSER OMR AN Comment on above: Result Comment: URIN ALYSIS Performed By: #### [id number] #### [facility],[address] [place] [address] Start: 02-24-2024 Urinalysis YASSER OMR AN Comment on above: Result Comment: URIN ALYSIS Performed By: #### [id number] #### [facility],[address] [place] [address] Start: 07-06-2017 Screening for malign ant neoplasm of colon Screening, colon cancer Afua Davis PA-C Plan of Treatment Date Care Activity Detail Author Start: 08-01-2017 End: 08-01-2017 Appointment Appointment [facility] Work Phone: Start: 07-06-2017 End: 07-11-2017 Colonoscopy flx dx w/collj spec when pfrmd Colonoscopy [facility] Work Phone: Payers Date Payer Category Payer Medicare [id number] 2024 Self-pay [id number] 2024 Unknown [id number] 68 [id number] 1950 Unknown [id number] 2.16.8 [id number] 1950 Unknown [id number] 2.16.8 [id number] 1950 Unknown [id number] 2.16.8 [id number] 1950 Unknown [id number] 2.16.8 [id number] Unknown REGINA [id number] Unknown [id number] 2.16.8 [id number] Unknown [id number] [id number] Social History Date Type Detail Facility Start: 08-04-2020 [facility] Start: 1950 Sex Assigned At Male [facility] Evaluation note Note Date & Type Note Facility Evaluation note No assessment information availa ble [facility] Work Phone: Summary Purpose Family History No Family History Records Found Relationship Condition Age at Onset Recorded Date/T svetlana father Malignant neoplasm Unknown Advance Directives No Advanced Directives Records Found Advance Directive Response Recorded Date/ Time Living Will No August 04 020 11:35am Power of Leather Belt Loop Cutter No August 04, 2020 11:35am Chief Complaint and Reason for Visit Chief Complaint PSA Additional Source Comments (unrecognized sect ion and content) No Status Records FoundNo Status Records FoundNo Status Records Found INFORMATION SOURCE (unrecogn ized section and content) DATE CREATED AUTHOR 09/23/2021 [facility] DATE CREATED AUTHOR AUTHOR'S ORGANIZ ATION 02/17/2025 [facility] DATE CREATED AUTHOR AUTHOR'S ORGANIZ ATION 02/25/2025 [facility] Care Teams (unrecognized sec tion and content) Team Status: Active Member Role Status Dates Dr. Dolores Grant MD Family Provider Active Dr. Dolores Grant MD Primary Care Provider Active Team Status: Inactive Member Role Status Dates Dr. Dolores Grant MD Primary Care Provider Active Dr. Froy Hussein MD Attending Provider, Referring Pr ovid Active Goals (unrecognized section and content) Goals may be documented in a n alternate section FOR RECORDS PERTAINING TO PATIENTS WHO ARE OR HAVE BEEN ENROLLED IN A CHEMICAL DEPENDENCY/SUBSTANCEABUSE PROGRAM, SOME INFORMATION MAY BE OMITTED. This clinical summary was aggregated from multiple sources. Caution should be exercised in using it in the provision of clinical care. This summary normalizes information from multiple sources, and as a consequence, information in this document may materially change the coding, format and clinical context of patient data. In addition, data may be omitted in some cases. CLINICAL DECISIONS SHOULD BE BASED ON THE PRIMARY CLINICAL RECORDS. [employer] provides no warranty or guarantee of the accuracy or completeness of information in this document.
--- NOTE | 2025-02-27 07:46 | PRE.ANES_ITS ---
ASA Classification* ASA Classification ASA Classification: 2 Assessment & Plan Anesthesia* Anesthesia Assessment Anesthesia Assessment: Discussed sedation and/or anesthesia options, risks, benefits, and alternatives with patient/parents/legal guardian/POA. Questions invited. The patient/parents/legal guardian/POA seems to understand and agrees to proceed with anesthesia plan. Reviewed the physical assessment, medical history, allergy history and patient home medications list prior to surgery/procedure/anesthetic and documented any changes. Performed airway and anesthesia risk assessments. 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 When Was Last Pacemaker Check QUESTION #4 FULL TEXT: You/Your Family Experience fever (hyperthermia) with Anesthesia Last Oral Intake Last Oral intake: Last Oral Intake NPO since Meds taken in AM with sips of water? Meds patient instructed to take am of surgery PONV PONV - lamination technician: PONV - lamination technician Female No 02/22/25 11:57 HX of Motion Sickness No 02/22/25 11:57 HX of N/V After Surgery No 02/22/25 11:57 Non-Smoker Yes 02/22/25 11:57 Duration of Surgery greater No 02/22/25 11:57 than 60 minutes Number of Risk Factors 1 02/22/25 11:57 PONV Score Low Risk 02/22/25 11:57 Respiratory Assessment Respiratory Assessment - lamination technician: Respiratory Tract Infection Hx - lamination technician Hx Respiratory Tract Infection No 02/22/25 11:57 STOP Sleep Apnea STOP Sleep Apnea - lamination technician: STOP Sleep Apnea - lamination technician Hx Hypertension No 02/22/25 11:57 Hx Sleep Apnea No 02/22/25 11:57 CPAP BIPAP Do you snore loudly (louder No 02/22/25 11:57 than talking or can be heard Do you often feel tired/ No 02/22/25 11:57 fatigued/ sleepy during daytime? Has anyone observed you stop No 02/22/25 11:57 breathing during sleep? STOP Results Negative 02/22/25 11:57 QUESTION #5 FULL TEXT : Do you snore loudly (louder than talking or can be heard through closed doors)? Tobacco Use History Tobacco Use History - lamination technician: Tobacco Use History - lamination technician Tobacco Use Smoking Status Never smoker 02/22/25 11:57 Hx Tobacco Use No 02/22/25 11:57 Years Smoking Packs Smoked per Day Smoking Cessation Date was within the last 15 years Hx Smoking Cessation Date Hx Smoking Cessation Counseling Hematologic Medial History Hematologic Hx - lamination technician: Hematologic Medical Hx - junior legal secretary Hx of Blood Transfusion No 02/22/25 11:57 Hx of Transfusion in last 3 No 02/22/25 11:57 Months Date of Last Transfusion (if within last 3 months) Ever experience any problems No 02/22/25 11:57 with transfusion(s)? Specify any problems Hx of Preganancy in last 3 N/A 02/22/25 11:57 Months Nurse Filling Out Transfusion ROLAND 02/22/25 11:57 & Questions: Date: 02/22/25 02/22/25 11:57 Time: 11:59 02/22/25 11:57 Patient unable to answer at this time (ie. confused, unrespo /Reproduction History /Reproductive History - lamination technician: /Reproductive Hx- lamination technician Hx Now Gestational Age (in weeks): EDC: Hx Hx Para Hx Section SAB Active Medications Active Medications: Current Medications Generic Name Dose Route Start Last Admin Trade Name Freq PRN Reason Stop Dose Admin Lactated Ringer's 1,000 mls @ 15 mls/hr 02/27/25 07:45 IV .Q48H ABNER PFSH Medical History Non-smoker History of echocardiogram History of stress test High cholesterol Diabetes BPH (benign prostatic hyperplasia) History of colonic polyps Home Medications ?Medication ?Instructions ?Recorded ?Last Taken ?Type metformin 1,000 mg tablet 500 mg PO BID 07/29/17 Unkno wn History aspirin 81 mg tablet,delayed 81 mg PO DAILY 04/09/20 U nknown History release lovastatin 40 mg tablet 40 mg PO DAILY 04/09/20 Unkn own History Allergy/AdvReac Type Severity Reaction Status Date / Time No Known Allergies Allergy Verified 02/22/25 11:53 Family History Father Cancer prostate Surgical History History of colonoscopy S/P laminectomy S/P tonsillectomy S/P right inguinal hernia repair H/O melanoma excision Social History Smoking Status: Never smoker alcohol intake: never Review of Systems (Anesthesia) ROS Narrative System reviewed and no additional complaints, except as documented.
[2025-02-27] MEDS: Lactated Ringers 1,000 ML 15 ML IV (08:10)
[2025-02-27 08:35] LABS: Bedside Glucose 146 mg/dL (74-106)
--- NOTE | 2025-02-27 08:42 | H&P.OPEN ---
[facility] - General General Date of Service: 02/27/25 HPI Karey BALDWIN, is a 74 M who presents for screening colonoscopy due to history of colon polyps. 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 Patient's last colonoscopy was 2020 recommended follow-up in 5 years due to the previous tubulovillous adenoma. Patient has bowel movements daily denies any blood. Patient denies any chronic abdominal pain/nausea/vomiting/reflux. Patient denies any family history of colon cancer. [facility] Medical History (Updated 02/27/25 @ 08:[address] Glenna Rodriguez MD) Non-smoker History of echocardiogram History of stress test High cholesterol Diabetes BPH (benign prostatic hyperplasia) History of colonic polyps Home Medications ?Medication ?Instructions ?Recorded ?Last Taken ?Type metformin 1,000 mg tablet 500 mg PO BID 07/29/17 02/20/25 History aspirin 81 mg tablet,delayed 81 mg PO DAILY 04/09/20 02/20/25 History release lovastatin 40 mg tablet 40 mg PO DAILY 04/09/20 02/20/25 History Allergy/AdvReac Type Severity Reaction Status Date / Time No Known Allergies Allergy Verified 02/27/25 07:56 Family History Father Cancer prostate Surgical History History of colonoscopy S/P laminectomy S/P tonsillectomy S/P right inguinal hernia repair H/O melanoma excision Social History Smoking Status: Never smoker alcohol intake: never Past Medical/Surgical History Planned Operation Planned Operative Procedure(s): COLONOSCOPY S.O.S: No Previous Hospitalizations/Surgeries HX Hospitalizations: No HX of Surgeries: LUMBAR DISKECTOMY 2017 COLONOSCOPY Any Problems With Anesthesia: No You/Your Family Experience Fever (Hyperthermia) With Anes: No Cholinesterase deficiency: No Cardiovascular Hx Chest Pain within Last 2 months: No Hx of Irregular Heartbeat and/or Afib: No Hx Heart Attack: No Hx Congestive Heart Failure: No Hx Rheumatic Fever: No Hx Hypertension: No Hx Internal Defibrillator: No Hx Pacemaker: No Hx Cardiac Catheterization: No Hx Cardiac Surgery/Stents/Etc.: No Hx Stress Test: No Hx Pain in Legs when Walking/Leg Cramps: No Respiratory Chronic Cough: No HX of Shortness of Breath: No Hoarseness: No Hx Chronic Obstructive Pulmonary Disease (COPD): No Hx Asthma: No Hx Emphysema: No Hx Sleep Apnea: No Hx Respiratory Tract Infection/Cold (presently): No Do You Snore Loudly (louder than talking or can be heard): No Do You Often Feel Tired/ Fatigued/ Sleepy Dring Daytime?: No Has Anyone Observed You Stop Breathing During Sleep?: No Result (for STOP score): Negative Hx Smoking: No Smoking Status: Never smoker Gastrointestinal Hx Gastrointestinal Disorders: No Hx Gastrointestinal Bleed: No Hx Ulcer: No Hx Hiatal Hernia: No Difficulty Chewing/Swallowing: No Special diet followed at home: Yes (DIABETIC) Hx Unplanned Weight Loss of 20#: No HX Unplanned Weight Gain of 20#: No Neurological Hx Seizures: No HX Syncope/Blackout Spells/Unconsciousness: No Hx Transient Ischemic Attacks (TIA): No Hx Multiple Sclerosis: No Hx Parkinson's Disease: No Hx Head/Neck Injury: No Hx Headaches: No Hx Back Injury/Pain: Yes (LUMBAR DISKECTOMY FROM INJURY) Recent Onset of Speech Difficulty: No Restless Legs: No Does patient have nerve stimulator: No Blood Disorder Hx Leukemia: No Bleeding Tendencies: No Hx Deep Vein Thrombosis: No Hx High Cholesterol: Yes (on med) Blood Transmitted Disease: No Hx Hepatitis: No Hx Cirrhosis: No Hx Anemia: No Hx Blood Disorders: No Genitourinary Hx Renal Disease: No Musculoskeletal Hx Arthritis: Yes (in neck) Hx Rheumatoid Arthritis: No Hx Gout: No Recent Onset of an Orthopedic Problem: No Endocrine Hx Diabetes: Yes (on metformin) Insulin: No Thyroid Disease: No Hx Steroid Therapy: No Psycho/Social Hx Substance Use: No Hx Alcohol Use: No Hx Anxiety: No Hx Depression: No Mental Illness: No Hx Dementia: No Miscellaneous Hx Cancer: No Recent Exposure to Contagious Disease: No Hx of C-Diff: No Any Loose Teeth: No Allergies No Known Allergies Allergy (Verified 02/27/25 07:56) Discharge Is Pt Admitted From a Usp, or a Usp: No Who Could Help: After D/C, Where Do you Plan to Go: Return Home From the PAT History Number of Risk Factors: 2 Vital Signs Vital Signs Vital Signs: 02/27/25 07:58 02/27/25 07:58 Temperature 97.0 F L Temperature Source Temporal Pulse Rate 57 L Respiratory Rate 18 Respiratory Pattern Normal Blood Pressure 148/81 H Blood Pressure Mean 103 Blood Pressure Source Monitor Blood Pressure Position Semi-Fowlers Blood Pressure Location Right Arm Pulse Ox 98 Oxygen Delivery Method Room Air Weight Weight: 176 lb 5.917 oz Body Mass Index (BMI) 24.5 Physical Exam Const alert, oriented x3 and no apparent distress HEENT normocephalic and head/scalp atraumatic Resp normal respiratory effort Cardio regular rate GI soft to palpation and non-tender; Negative for non-distended Palpation: Negative for guarding Extremity no clubbing, cyanosis or edema Skin no rashes or lesions noted Neuro CN's II-XII intact bilaterally Psych mental status grossly normal Assessment & Plan Assessment/Plan (1) History of colonic polyps: Surgery Risks - Colonoscopy I discussed with the patient the risks of the procedure: Yes Risks Include but are not Limited To: Risks include but are not limited to: Bleeding, perforation requiring further surgery, inability to complete colonoscopy requiring barium enema.
--- NOTE | 2025-02-27 09:51 | OP.CCLET_ITS ---
02/27/2025 Karissa Gratn [address] [id number] Re : Colonoscopy procedure for Randolph Bonilla Dear Dr. Grant This procedure was performed on Thursday, February 27, 2025. My impressions and recommendations are as follows: Impressions : - The entire examined colon is normal on direct and retroflexion views. - No specimens collected. Recommendations : - Discharge patient to home. - Resume previous diet. - Continue present medications. - Repeat colonoscopy in 5-10 years for screening purposes. My findings are described in the full procedure note, which is enclosed. If I can be of further assistance, please feel free to contact me at Doctor phone number(s): , Work: . Sincerely, MD Glenna Rincon MD 02/27/2025 9:50:57 AM This report has been signed electronically.
--- NOTE | 2025-02-27 09:51 | OP.COLON_ITS ---
Patient Name: Randolph Bonilla Procedure Date: 02/27/2025 9:16 AM Date of : 1950 Age: 74 Procedure: Colonoscopy Indications: High risk colon cancer surveillance: Personal history of adenoma with villous component Providers: Glenna Rodriguez MD Referring MD: Karissa Grant Medicines: Monitored Anesthesia Care Patient Profile: This is a 74 year old male. Last Colonoscopy: 5 years ago. Complications: No immediate complications. Procedure: Pre-Anesthesia Assessment: - Prior to the procedure, a History and Physical was performed, and patient medications and allergies were reviewed. The patient's tolerance of previous anesthesia was also reviewed. The risks and benefits of the procedure and the sedation options and risks were discussed with the patient. All questions were answered, and informed consent was obtained. Prior Anticoagulants: The patient has taken no anticoagulant or antiplatelet agents. ASA Grade Assessment: II - A patient with mild systemic disease. After reviewing the risks and benefits, the patient was deemed in satisfactory condition to undergo the procedure. After I obtained informed consent, the scope was passed under direct vision. Throughout the procedure, the patient's blood pressure, pulse, and oxygen saturations were monitored continuously. The Colonoscope was introduced through the anus and advanced to the cecum, identified by the appendiceal orifice, ileocecal valve and palpation. The colonoscopy was performed without difficulty. The patient tolerated the procedure well. The quality of the bowel preparation was good. Scope In: 9:24:57 AM Scope Withdrawal Time 0 hours 6 minutes 22 seconds Scope Out: 9:42:12 AM Total Procedure Duration Time 0 hours 17 minutes 15 seconds Findings: The perianal and digital rectal examinations were normal. [Pertinent Negatives]. The entire examined colon appeared normal on direct and retroflexion views. Impression: - The entire examined colon is normal on direct and retroflexion views. - No specimens collected. Recommendation: - Discharge patient to home. - Resume previous diet. - Continue present medications. - Repeat colonoscopy in 5-10 years for screening purposes. Procedure Code(s): --- Professional --- G0105, PT, Colorectal cancer screening; colonoscopy on individual at high risk Diagnosis Code(s): --- Professional --- Z86.010, Personal history of colonic polyps CPT copyright 2021 [employer]. All rights reserved. The codes documented in this report are preliminary and upon organization development consultant review may be revised to meet current compliance requirements. MD Glenna Rincon MD 02/27/2025 9:50:57 AM This report has been signed electronically. Number of Addenda: 0 Note Initiated On: 02/27/2025 9:16 AM
--- NOTE | 2025-02-27 09:51 | PCM.POST.ANE ---
Anesthesia: Postop Eval I Current Vital Signs Temperature: 97.5 F Pulse Rate: 57 Blood Pressure: 110/63 Respiratory Rate: 16 Pulse Ox: 95 Oxygen Delivery Method: Room Air Assessment Airway patent: Yes Spontaneous unlabored respirations: Yes Mental status: Asleep nausea: No Vomiting: No Anesthesia Complication: No Fluid Hydration Crystalloid volume administer (ml): 800 Total IV fluid infused: 800 Progress Note Anesthesia document: Postop Eval 1 completed: Yes
--- NOTE | 2025-02-27 10:33 | PCM.POSTANE2 ---
Anesthesia Postop Eval I Sum Postop Eval Completion status Anesthesia document: Postop Eval 1 completed: Yes Anesthesia Postop Eval I Summary Anesthesia Postop Eval I Summary: Anesthesia Postop Eval I: Assessment Summary Airway patent Yes 02/27/25 09:52 [email or web address] Spontaneous unlabored Yes 02/27/25 09:52 [email or web address] respirations Mental status Asleep 02/27/25 09:52 [email or web address] nausea No 02/27/25 09:52 [email or web address] Vomiting No 02/27/25 09:52 [email or web address] Anesthesia Postop Eval I: Fluid Summary Crystalloid volume administer 800 02/27/25 09:52 [email or web address] (ml) Colloids volume administered ( ml) Blood Product volume administered (ml) Total IV fluid infused 800 02/27/25 09:52 [email or web address] Anesthesia Postop Eval I: Summary Notes Anesthesia Complication No 02/27/25 09:52 [email or web address] Anesthesia Complication Comment: Post-operative progress note Anesthesia: Postop Eval II Evaluation Mental status: Awake Pain Level: 0 nausea: No Vomiting: No
== END 2025-02-27 10:38 | disposition home or self-care (01) ==
LOC: EN 07:34 → AC 07:35
PROVIDERS: PCP Internal Medicine Infectious Disease; Referring Provider Internal Medicine Infectious Disease; Visit Provider Surgery
PROC: 0DJD8ZZ Inspection of Lower Intestinal Tract, Via Natural or Artificial Opening Endoscopic (ICD-10-PCS; CPT 45378; principal; 2025-02-27 08:55)
DX: Z12.11 Encounter for screening for malignant neoplasm of colon (principal); E11.9 Type 2 diabetes mellitus without complications; E78.00 Pure hypercholesterolemia, unspecified; Z86.0100 Personal history of colon polyps, unspecified; Z79.84 Long term (current) use of oral hypoglycemic drugs; Z79.82 Long term (current) use of aspirin; Z79.899 Other long term (current) drug therapy
CPT/HCPCS: G0105; 82962; J2405

== ENCOUNTER → 2025-06-18 | Outpatient (CLI) | payer MEDICARE, OTHER, SELFPAY ==
[2025-06-18 11:17] LABS: PSA,Total - Annual Screen 0.86 ng/mL (0.02-4.00)
== END | disposition home or self-care (01) ==
LOC: LAB 09:50
PROVIDERS: PCP Internal Medicine Infectious Disease; Referring Provider Urology; Visit Provider Urology
DX: Z12.5 Encounter for screening for malignant neoplasm of prostate (principal)
CPT/HCPCS: 36415; 84153; G0103